=== PATIENT | male | born 1935 | race Caucasian/White ===

== ENCOUNTER 2018-03-22 10:17 | Outpatient (CLI) | payer MEDICARE, OTHER ==
[~2018-03-22 10:17] MED LIST: AMIO200T57 PO; APIX5TAB3 PO; ATOR40TA PO; BUPR150T8 PO; CARV3.122 PO; CLOP75TA33 PO; FURO-149 PO; GABA-530 PO; PANT-47 PO
[2018-03-22 10:51] LABS: TOTAL HEMOGLOBIN 15.9 G/dl (14.0-18.0)
[2018-03-22] MEDS ORDERED: albuterol 2.5 MG/3 ML nebule NEB ONE (11:15)
== END 2018-03-22 23:59 | disposition home or self-care (01) ==
LOC: RT 10:17
PROVIDERS: ATTEND Internal Medicine Cardiovascular Disease
DX: Z51.81 Encounter for therapeutic drug level monitoring (principal); I50.1 Left ventricular failure, unspecified; R06.02 Shortness of breath; I11.0 Hypertensive heart disease with heart failure; I50.22 Chronic systolic (congestive) heart failure; E11.9 Type 2 diabetes mellitus without complications; Z98.890 Other specified postprocedural states; Z79.899 Other long term (current) drug therapy
CPT/HCPCS: 71046; 85018; 94060; 94640; 94727; 94729; 94760

== ENCOUNTER 2018-07-19 10:41 | Inpatient (IN) | payer MEDICARE, OTHER ==
[~2018-07-19] VITALS: Ht 188 cm; Wt 90.9 kg
[~2018-07-19 10:41] MED LIST changes: +AMIO200T54 PO; -AMIO200T57 PO
[2018-07-19 11:15] LABS: BASOPHILS % (AUTO) 0.7 % (0-1); EOSINOPHILS # (AUTO) 0.2 X10'3 (0-0.9); EOSINOPHILS % (AUTO) 4.4 % (0-6); HEMATOCRIT 44.5 % (42.0-52.0); HEMOGLOBIN 14.8 g/dl (14.0-17.9); LYMPHOCYTES # (AUTO) 1.5 X10'3 (1.1-4.8); LYMPHOCYTES % (AUTO) 32.3 % (21-51); MEAN CORPUSCULAR HEMOGLOBIN 32.2 PG (27.0-31.0); MEAN CORPUSCULAR HGB CONC 33.3 % (33.0-36.5); MEAN CORPUSCULAR VOLUME 96.8 FL (78-98); MEAN PLATELET VOLUME 9.4 FL (7.4-10.4); MONOCYTES # (AUTO) 0.3 X10'3 (0-0.9); MONOCYTES % (AUTO) 7.2 % (2-12); NEUTROPHILS # (AUTO) 2.6 X10'3 (1.8-7.7); NEUTROPHILS % (AUTO) 55.4 % (42-75); PLATELET COUNT 137 X10'3 (140-440); RED CELL DISTRIBUTION WIDTH 14.2 % (11.5-14.5); WHITE BLOOD COUNT 4.6 X10'3 (4.5-11.0)
[2018-07-19] MEDS ORDERED: aspirin 325mg tablet PO ONE (11:15)
[2018-07-19 11:27] LABS: ALANINE AMINOTRANSFERASE 25 U/L (12-78); ALBUMIN 3.5 G/DL (3.4-5.0); ALBUMIN/GLOBULIN RATIO 1.1 (1.1-1.5); ALKALINE PHOSPHATASE 159 IU/L (46-116); ANION GAP 8 (8-16); ASPARTATE AMINO TRANSFERASE 23 U/L (10-37); BLOOD UREA NITROGEN 18 MG/DL (7-18); BUN/CREATININE RATIO 14.5 (5.4-32.0); CALCIUM 7.9 MG/DL (8.5-10.1); CHLORIDE 102 MMOL/L (99-107); CREATININE 1.24 MG/DL (0.60-1.10); GLUCOSE 101 MG/DL (70-104); POTASSIUM 3.2 MMOL/L (3.5-5.1); SODIUM 143 MMOL/L (135-145); TOTAL CARBON DIOXIDE 33.4 MMOL/L (24-32); TOTAL PROTEIN 6.6 G/DL (6.4-8.2); eGFR 56 ML/MIN
[2018-07-19] MEDS ORDERED: DRON400T2 PO (11:27)
[2018-07-19 11:43] LABS: D-DIMER 2.82 MG/L FEU (0-0.50); INR 1.1 INR; PARTIAL THROMBOPLASTIN TIME 29 SECONDS (22-32); PROTHROMBIN TIME 11.4 SECONDS (9.0-12.0)
[2018-07-19] MEDS ORDERED: iohexol 350MG/ML 100ml bottle IV ONE (12:14)
[2018-07-19 12:24] LABS: CLARITY,URINE CLEAR (Clear); COLOR,URINE YELLOW (Yellow); GLUCOSE, URINE NEGATIVE (Neg); KETONES,URINE NEGATIVE (Neg); LEUKOCYTE ESTERASE ,URINE NEGATIVE (Neg); NITRITES, URINE NEGATIVE (Neg); OCCULT BLOOD,URINE NEGATIVE (Neg); PROTEIN,URINE NEGATIVE (Neg); UROBILINOGEN,URINE 0.2 E.U/dL (0.2-1.0)
[2018-07-19 12:25] LABS: UA COLLECTION TYPE CLN CATCH MIDSTREAM
[2018-07-19] MEDS ORDERED: magnesium Cl slow-release 64mg tablet PO PRN (13:55)
[2018-07-19] MEDS ORDERED: magnesium 4gm in 100ml NS 100 ML IV PRN (13:55)
[2018-07-19] MEDS ORDERED: potassium Cl 20 mEq SR tablet PO PRN (13:55)
[2018-07-19] MEDS ORDERED: acetaminophen 325mg tablet PO PRN (13:55)
[2018-07-19] MEDS ORDERED: potassium Cl 40MEQ/NS 500ml 500 ML IV PRN ×2 (13:55)
[2018-07-19] MEDS ORDERED: magnesium hydroxide 30ml (MOM) UD suspension PO PRN (13:55)
[2018-07-19] MEDS ORDERED: bisacodyl 10mg suppository rectal RC PRN (13:55)
[2018-07-19] MEDS ORDERED: HYDROcodone/acetaminophen 5mg/325mg tablet PO PRN (13:55)
[2018-07-19] MEDS ORDERED: magnesium 1gm/100ml D5W IVPB 100 ML IV PRN (13:55)
[2018-07-19] MEDS ORDERED: mag hydrox/Alum hydrox/simeth 30ml oral suspension PO PRN (13:55)
[2018-07-19] MEDS ORDERED: morphine 2 MG/ML inj. syringe IV PRN ×2 (13:55)
[2018-07-19] MEDS ORDERED: metoprolol tartrate 1mg/ml inj IV PRN (14:00)
[2018-07-19] MEDS ORDERED: CAFFEINE CITRATE 60 MG/3 ML injection vial IV PRN (14:00)
[2018-07-19] MEDS ORDERED: regadenoson 0.4mg/5ml syringe IV PRN (14:00)
[2018-07-19] MEDS ORDERED: nitroGLYCERIN 0.4mg SUBLingual tab SL PRN ×2 (14:00)
[2018-07-19] MEDS ORDERED: dextrose ORAL solution 15 GM/59 ML bottle PO PRN ×2 (14:05)
[2018-07-19] MEDS ORDERED: insulin Lispro (HumaLOG) vial - multi-dose SQ SCH (14:05)
[2018-07-19] MEDS ORDERED: MESSAGE TO PHARMACY PO ONE (14:05)
[2018-07-19] MEDS ORDERED: dextrose 50%-water 50ml dispensing syringe IV PRN ×2 (14:05)
[2018-07-19] MEDS ORDERED: glucagon, human recombinant 1mg kit SUBCUT PRN (14:05)
[2018-07-19 15:00] VITALS: BP 144/69
[2018-07-19] MEDS: potassium Cl 20 mEq SR tablet PO PRN ×2 (15:24→20:41)
[2018-07-19] MEDS: potassium cl 20mEq in 1/2 NS 1,000 ML IV SCH (16:48)
[2018-07-19 19:00] VITALS: BP 133/55
[2018-07-19] MEDS: dronedarone hcl 400mg tablet PO SCH (20:33)
[2018-07-19] MEDS: carVEDilol 3.125mg tablet PO SCH (20:33)
[2018-07-19] MEDS: docusate sod 100mg capsule PO SCH (20:33)
[2018-07-19] MEDS: buPROPion SR 150mg tablet PO SCH (20:34)
[2018-07-19] MEDS: apixaban 5mg tablet PO SCH (20:34)
[2018-07-19] MEDS ORDERED: atorvastatin 20mg tablet PO SCH (21:00)
[2018-07-19] MEDS ORDERED: gabapentin 300mg capsule PO SCH (21:00)
[2018-07-19 23:00] VITALS: BP 109/58
[2018-07-20] VITALS (12 sets, daily range): BP systolic 104–175; BP diastolic 53–81
[2018-07-20] MEDS: potassium cl 20mEq in 1/2 NS 1,000 ML IV SCH (04:11)
[2018-07-20 06:21] LABS: BASOPHILS % (AUTO) 0.4 % (0-1); EOSINOPHILS # (AUTO) 0.2 X10'3 (0-0.9); EOSINOPHILS % (AUTO) 4.8 % (0-6); HEMATOCRIT 39.1 % (42.0-52.0); HEMOGLOBIN 13.8 g/dl (14.0-17.9); LYMPHOCYTES # (AUTO) 1.6 X10'3 (1.1-4.8); LYMPHOCYTES % (AUTO) 33.2 % (21-51); MEAN CORPUSCULAR HEMOGLOBIN 33.4 PG (27.0-31.0); MEAN CORPUSCULAR HGB CONC 35.3 % (33.0-36.5); MEAN CORPUSCULAR VOLUME 94.8 FL (78-98); MEAN PLATELET VOLUME 9.8 FL (7.4-10.4); MONOCYTES # (AUTO) 0.4 X10'3 (0-0.9); MONOCYTES % (AUTO) 9.2 % (2-12); NEUTROPHILS # (AUTO) 2.6 X10'3 (1.8-7.7); NEUTROPHILS % (AUTO) 52.4 % (42-75); PLATELET COUNT 117 X10'3 (140-440); RED BLOOD COUNT 4.13 X10'6 (4.70-6.10); RED CELL DISTRIBUTION WIDTH 14.6 % (11.5-14.5); WHITE BLOOD COUNT 4.8 X10'3 (4.5-11.0)
[2018-07-20 06:25] LABS: ALANINE AMINOTRANSFERASE 21 U/L (12-78); ALBUMIN 3.1 G/DL (3.4-5.0); ALBUMIN/GLOBULIN RATIO 1.1 (1.1-1.5); ALKALINE PHOSPHATASE 132 IU/L (46-116); ANION GAP 5 (8-16); ASPARTATE AMINO TRANSFERASE 17 U/L (10-37); BILIRUBIN,TOTAL 0.9 MG/DL (0.1-1.0); BLOOD UREA NITROGEN 17 MG/DL (7-18); CHLORIDE 105 MMOL/L (99-107); CREATININE 1.06 MG/DL (0.60-1.10); GLUCOSE 93 MG/DL (70-104); MAGNESIUM 1.6 MG/DL (1.5-2.4); POTASSIUM 3.1 MMOL/L (3.5-5.1); SODIUM 143 MMOL/L (135-145); TOTAL CARBON DIOXIDE 32.9 MMOL/L (24-32); TOTAL PROTEIN 5.8 G/DL (6.4-8.2); eGFR 67 ML/MIN
[2018-07-20] MEDS ORDERED: buPROPion SR 150mg tablet PO SCH (08:00)
[2018-07-20] MEDS ORDERED: aspirin 81mg tablet.DR PO SCH (08:00)
[2018-07-20] MEDS: carVEDilol 3.125mg tablet PO SCH (08:00)
[2018-07-20] MEDS ORDERED: furosemide 40mg tablet PO SCH (08:00)
[2018-07-20] MEDS ORDERED: K and/or MAG REPLACEMENT MC SCH (08:00)
[2018-07-20] MEDS ORDERED: pantoprazole 40mg Tablet.DR PO SCH (08:00)
[2018-07-20] MEDS: docusate sod 100mg capsule PO SCH (08:42)
[2018-07-20] MEDS: potassium Cl 20 mEq SR tablet PO PRN (08:43)
[2018-07-20] MEDS: apixaban 5mg tablet PO SCH (08:44)
[2018-07-20] MEDS: buPROPion SR 150mg tablet PO SCH (08:45)
[2018-07-20] MEDS: dronedarone hcl 400mg tablet PO SCH (08:48)
[2018-07-20] MEDS ORDERED: regadenoson 0.4mg/5ml syringe IV ONE (12:09)
[2018-07-20] MEDS ORDERED: aminophylline inj. 0 ML IV ONE (12:09)
== END 2018-07-20 16:40 | disposition home or self-care (01) | DRG 313 ==
LOC: ER 10:41 → ED HOLD 13:53 → PCU 3S 14:55
PROVIDERS: ADMIT Internal Medicine; ATTEND Family Medicine
PROC: B3201ZZ Computerized Tomography (CT Scan) of Thoracic Aorta using Low Osmolar Contrast (ICD-10-PCS; principal; 2018-07-19)
PROC: 4A02XM4 Measurement of Cardiac Total Activity, External Approach (ICD-10-PCS; 2018-07-20)
PROC: 3E033HZ Introduction of Radioactive Substance into Peripheral Vein, Percutaneous Approach (ICD-10-PCS; 2018-07-20)
DX: R07.89 Other chest pain (principal); I42.0 Dilated cardiomyopathy; I25.10 Atherosclerotic heart disease of native coronary artery without angina pectoris; K80.20 Calculus of gallbladder without cholecystitis without obstruction; E11.9 Type 2 diabetes mellitus without complications; E78.5 Hyperlipidemia, unspecified; R00.1 Bradycardia, unspecified; E87.6 Hypokalemia; G47.30 Sleep apnea, unspecified; I10 Essential (primary) hypertension; I48.91 Unspecified atrial fibrillation; T50.1X5A Adverse effect of loop [high-ceiling] diuretics, initial encounter; Z95.1 Presence of aortocoronary bypass graft; Z95.5 Presence of coronary angioplasty implant and graft; Z88.2 Allergy status to sulfonamides; Z86.73 Personal history of transient ischemic attack (TIA), and cerebral infarction without residual deficits; Z82.5 Family history of asthma and other chronic lower respiratory diseases; Z83.3 Family history of diabetes mellitus; Z80.8 Family history of malignant neoplasm of other organs or systems; Y92.9 Unspecified place or not applicable
CPT/HCPCS: 36415; 71045; 71275; 78452; 80053; 81003; 82948; 83036; 83735; 83880; 84484; 85025; 85379; 85610; 85730; 87070; 93005; 93017; 93306; 93970; 99285; A9500; J0280; Q9967

== ENCOUNTER 2019-05-02 11:29 | Emergency (ER) | payer MEDICARE, OTHER ==
[~2019-05-02] VITALS: Ht 188 cm; Wt 70.0 kg
[~2019-05-02 11:29] MED LIST changes: -AMIO200T54 PO; -CLOP75TA33 PO; +DRON400T2 PO
[2019-05-02] MEDS ORDERED: morphine 4 MG/ML inj SYRINge IV PRN (11:40)
[2019-05-02 12:28] LABS: BASOPHILS % (AUTO) 0.5 % (0-1); EOSINOPHILS # (AUTO) 0.3 X10'3 (0-0.9); EOSINOPHILS % (AUTO) 3.9 % (0-6); HEMATOCRIT 49.8 % (42.0-52.0); HEMOGLOBIN 16.3 g/dl (14.0-17.9); LYMPHOCYTES # (AUTO) 1.7 X10'3 (1.1-4.8); LYMPHOCYTES % (AUTO) 23.4 % (21-51); MEAN CORPUSCULAR HEMOGLOBIN 33.7 PG (27.0-31.0); MEAN CORPUSCULAR HGB CONC 32.8 g/dL (33.0-36.5); MEAN CORPUSCULAR VOLUME 102.8 FL (78-98); MEAN PLATELET VOLUME 10.1 FL (7.4-10.4); MONOCYTES # (AUTO) 0.5 X10'3 (0-0.9); MONOCYTES % (AUTO) 7.2 % (2-12); NEUTROPHILS # (AUTO) 4.8 X10'3 (1.8-7.7); PLATELET COUNT 130 X10'3 (140-440); RED BLOOD COUNT 4.84 X10'6 (4.70-6.10); RED CELL DISTRIBUTION WIDTH 15.8 % (11.5-14.5); WHITE BLOOD COUNT 7.4 X10'3 (4.5-11.0)
[2019-05-02] MEDS ORDERED: ondansetron/PF 4mg/2ml inj IV ONE (12:50)
[2019-05-02 12:52] LABS: ALANINE AMINOTRANSFERASE 29 U/L (12-78); ALBUMIN 3.6 G/DL (3.4-5.0); ALKALINE PHOSPHATASE 165 IU/L (46-116); ANION GAP 6 (8-16); ASPARTATE AMINO TRANSFERASE 26 U/L (10-37); BILIRUBIN,TOTAL 1.6 MG/DL (0.1-1.0); BLOOD UREA NITROGEN 15 MG/DL (7-18); BUN/CREATININE RATIO 13.5 (5.4-32.0); CALCIUM 8.4 MG/DL (8.5-10.1); CHLORIDE 104 MMOL/L (99-107); CREATININE 1.11 MG/DL (0.60-1.10); GLUCOSE 106 MG/DL (70-104); LIPASE 115 U/L (73-393); POTASSIUM 3.1 MMOL/L (3.5-5.1); SODIUM 144 MMOL/L (135-145); TOTAL CARBON DIOXIDE 34.4 MMOL/L (24-32); TOTAL PROTEIN 7.1 G/DL (6.4-8.2); eGFR 63 ML/MIN
--- NOTE | 2019-05-02 13:12 | NUR ---
pt back from ct
[2019-05-02 13:32] LABS: CLARITY,URINE CLOUDY (Clear); COLOR,URINE YELLOW (Yellow); GLUCOSE, URINE NEGATIVE (Neg); KETONES,URINE NEGATIVE (Neg); LEUKOCYTE ESTERASE ,URINE NEGATIVE (Neg); NITRITES, URINE NEGATIVE (Neg); OCCULT BLOOD,URINE TRACE-INTACT (Neg); PROTEIN,URINE 100 mg/dl (Neg)
[2019-05-02 13:34] LABS: UA COLLECTION TYPE URINAL
[2019-05-02 13:38] LABS: COARSE GRANULAR CAST >30 /LPF (NEGATIVE); HYALINE CASTS >30 /LPF (NEGATIVE)
[2019-05-02 13:39] LABS: FINE GRANULAR CAST >30 /LPF (NEGATIVE)
[2019-05-02 13:40] LABS: BACTERIA,URINE 1+ /HPF (Neg); SQUAMOUS EPITHELIAL CELL,UR FEW /LPF (FEW)
[2019-05-02] MEDS ORDERED: potassium Cl 10 mEq/100mL bag IV ONE (13:45)
[2019-05-02] MEDS ORDERED: potassium Cl 20 mEq SR tablet PO ONE (13:45)
[2019-05-02] MEDS ORDERED: CIPR-230 PO (13:58)
[2019-05-02] MEDS ORDERED: METR-159 PO (13:58)
[2019-05-02 14:15] VITALS: BP 142/73
== END 2019-05-02 14:17 | disposition home or self-care (01) ==
LOC: ER 11:29
DX: K52.9 Noninfective gastroenteritis and colitis, unspecified (principal); R05 Cough; E87.6 Hypokalemia; I25.10 Atherosclerotic heart disease of native coronary artery without angina pectoris; I10 Essential (primary) hypertension; Z86.73 Personal history of transient ischemic attack (TIA), and cerebral infarction without residual deficits; Z95.1 Presence of aortocoronary bypass graft; Z98.890 Other specified postprocedural states; Z88.2 Allergy status to sulfonamides; Z79.899 Other long term (current) drug therapy
CPT/HCPCS: 36415; 74176; 80053; 81001; 83690; 85025; 87088; 99284; J2405

== ENCOUNTER 2019-07-10 13:59 | Emergency (ER) | payer MEDICARE, OTHER ==
[~2019-07-10] VITALS: Ht 188 cm; Wt 88.6 kg
--- NOTE | 2019-07-10 14:57 | NUR ---
breaking primary RN, pt sitting up in bed, family present, awake, aware, still dizzy
[2019-07-10] MEDS ORDERED: meclizine 12.5mg tablet PO ONE (15:10)
[2019-07-10] MEDS ORDERED: ondansetron/PF 4mg/2ml inj IV ONE (15:10)
[2019-07-10] MEDS ORDERED: normal saline 1000ml 1,000 ML IV ONE (15:10)
[2019-07-10 15:15] LABS: BASOPHILS % (AUTO) 0.6 % (0-1); EOSINOPHILS # (AUTO) 0.2 X10'3 (0-0.9); EOSINOPHILS % (AUTO) 2.8 % (0-6); HEMATOCRIT 47.3 % (42.0-52.0); HEMOGLOBIN 15.9 g/dl (14.0-17.9); LYMPHOCYTES # (AUTO) 1.1 X10'3 (1.1-4.8); LYMPHOCYTES % (AUTO) 16.8 % (21-51); MEAN CORPUSCULAR HEMOGLOBIN 34.9 PG (27.0-31.0); MEAN CORPUSCULAR HGB CONC 33.7 g/dL (33.0-36.5); MEAN CORPUSCULAR VOLUME 103.6 FL (78-98); MEAN PLATELET VOLUME 9.7 FL (7.4-10.4); MONOCYTES # (AUTO) 0.4 X10'3 (0-0.9); MONOCYTES % (AUTO) 6.1 % (2-12); NEUTROPHILS # (AUTO) 4.9 X10'3 (1.8-7.7); NEUTROPHILS % (AUTO) 73.7 % (42-75); PLATELET COUNT 142 X10'3 (140-440); RED BLOOD COUNT 4.57 X10'6 (4.70-6.10); RED CELL DISTRIBUTION WIDTH 15.9 % (11.5-14.5); WHITE BLOOD COUNT 6.6 X10'3 (4.5-11.0)
[2019-07-10 15:30] LABS: ALANINE AMINOTRANSFERASE 39 U/L (12-78); ALBUMIN 3.6 G/DL (3.4-5.0); ALBUMIN/GLOBULIN RATIO 1.1 (1.1-1.5); ALKALINE PHOSPHATASE 158 IU/L (46-116); ANION GAP 7 (8-16); ASPARTATE AMINO TRANSFERASE 27 U/L (10-37); BILIRUBIN,TOTAL 1.1 MG/DL (0.1-1.0); BLOOD UREA NITROGEN 12 MG/DL (7-18); BUN/CREATININE RATIO 13.8 (5.4-32.0); CALCIUM 8.2 MG/DL (8.5-10.1); CHLORIDE 105 MMOL/L (99-107); CREATININE 0.87 MG/DL (0.60-1.10); GLUCOSE 100 MG/DL (70-104); MAGNESIUM 1.7 MG/DL (1.5-2.4); POTASSIUM 4.2 MMOL/L (3.5-5.1); SODIUM 142 MMOL/L (135-145); TOTAL CARBON DIOXIDE 30.5 MMOL/L (24-32); TOTAL PROTEIN 6.9 G/DL (6.4-8.2); eGFR 84 ML/MIN
[2019-07-10 16:16] LABS: CLARITY,URINE CLEAR (Clear); COLOR,URINE YELLOW (Yellow); GLUCOSE, URINE NEGATIVE (Neg); KETONES,URINE NEGATIVE (Neg); LEUKOCYTE ESTERASE ,URINE NEGATIVE (Neg); NITRITES, URINE NEGATIVE (Neg); OCCULT BLOOD,URINE TRACE-LYSED (Neg); PH,URINE 7.5 (4.8-8.0); PROTEIN,URINE TRACE mg/dl (Neg)
[2019-07-10 16:18] LABS: UA COLLECTION TYPE URINAL
[2019-07-10 16:24] LABS: BACTERIA,URINE FEW /HPF (Neg); SQUAMOUS EPITHELIAL CELL,UR FEW /LPF (FEW); WBC,URINE 0-4 /HPF (0-4)
[2019-07-10] MEDS ORDERED: MECL-111 PO (16:58)
[2019-07-10] MEDS ORDERED: ONDA8TAB6 PO (17:15)
[2019-07-10 17:36] VITALS: BP 179/79
== END 2019-07-10 17:38 | disposition home or self-care (01) ==
LOC: ER 13:59
DX: H81.10 Benign paroxysmal vertigo, unspecified ear (principal); I48.91 Unspecified atrial fibrillation; I25.10 Atherosclerotic heart disease of native coronary artery without angina pectoris; I10 Essential (primary) hypertension; E11.9 Type 2 diabetes mellitus without complications; Z86.73 Personal history of transient ischemic attack (TIA), and cerebral infarction without residual deficits; Z95.1 Presence of aortocoronary bypass graft; Z98.890 Other specified postprocedural states; Z88.2 Allergy status to sulfonamides; Z79.899 Other long term (current) drug therapy
CPT/HCPCS: 36415; 71045; 80053; 81001; 83735; 84484; 85025; 93005; 96361; 96374; 99284; J2405; J7030; J8597

== ENCOUNTER 2019-12-11 11:20 | Emergency (ER) | payer MEDICARE, OTHER ==
[~2019-12-11] VITALS: Ht 188 cm; Wt 87.1 kg
[~2019-12-11 11:20] MED LIST changes: +ALLO100T PO; -BUPR150T8 PO; +BUPR300T86 PO; +EFF37.5XRC PO; -FURO-149 PO
[2019-12-11 13:02] VITALS: BP 167/90
[2019-12-11] MEDS ORDERED: HYDR-4353 PO (13:44)
== END 2019-12-11 14:11 | disposition home or self-care (01) ==
LOC: ER 11:20
DX: M77.32 Calcaneal spur, left foot (principal); I25.10 Atherosclerotic heart disease of native coronary artery without angina pectoris; I10 Essential (primary) hypertension; E11.9 Type 2 diabetes mellitus without complications; Z86.73 Personal history of transient ischemic attack (TIA), and cerebral infarction without residual deficits; Z98.890 Other specified postprocedural states; Z88.2 Allergy status to sulfonamides; Z79.899 Other long term (current) drug therapy
CPT/HCPCS: 73630; 88300; 99283

== ENCOUNTER 2020-08-30 05:55 | Emergency (ER) | payer MEDICARE, OTHER ==
[~2020-08-30] VITALS: Ht 188 cm; Wt 84.0 kg
[2020-08-30] MEDS ORDERED: cocaine 4% topical solution 4ml bottle MM ONE (06:10)
[2020-08-30] MEDS ORDERED: phenylephrine 1% (X-tra strg) 15ml nasal spray NS PRN (06:15)
[2020-08-30] MEDS ORDERED: ONDA4TAB6 PO ×2 (06:27→06:46)
[2020-08-30] MEDS ORDERED: AMOX-422 PO ×2 (06:27→06:46)
[2020-08-30] MEDS ORDERED: amox tr/potassium clavulanate 875/125mg TAB PO ONE (06:30)
[2020-08-30] MEDS ORDERED: ondansetron 4mg rapidly disintigrating tab PO ONE (06:30)
[2020-08-30 07:07] VITALS: BP 132/82
== END 2020-08-30 07:09 | disposition home or self-care (01) ==
LOC: ER 05:56
DX: R04.0 Epistaxis (principal); I48.91 Unspecified atrial fibrillation; I10 Essential (primary) hypertension; I25.10 Atherosclerotic heart disease of native coronary artery without angina pectoris; E11.9 Type 2 diabetes mellitus without complications; Z85.22 Personal history of malignant neoplasm of nasal cavities, middle ear, and accessory sinuses; Z86.73 Personal history of transient ischemic attack (TIA), and cerebral infarction without residual deficits; Z98.890 Other specified postprocedural states; Z95.1 Presence of aortocoronary bypass graft; Z88.2 Allergy status to sulfonamides; Z79.2 Long term (current) use of antibiotics; Z79.899 Other long term (current) drug therapy
CPT/HCPCS: 30901; 99284

== ENCOUNTER 2022-03-22 06:03 | Day surgery (SDC) | payer MEDICARE, OTHER ==
[~2022-03-22] VITALS: Ht 188 cm; Wt 88.6 kg
[2022-03-22] VITALS (13 sets, daily range): BP systolic 111–142; BP diastolic 43–66
[~2022-03-22 06:03] MED LIST changes: +AMOX-422 PO; -DRON400T2 PO; +DRON400T7 PO; +ONDA4TAB6 PO
[2022-03-22] MEDS ORDERED: cefazolin/dext.iso 2gm/100ml 100 ML IV ONE (06:25)
[2022-03-22] MEDS ORDERED: normal saline 1000ml 1,000 ML IV SCH (06:30)
[2022-03-22] MEDS ORDERED: SERT-433 PO (06:39)
[2022-03-22] MEDS ORDERED: HYDR12.55 PO (06:44)
[2022-03-22] MEDS ORDERED: ATOR20TA PO (06:44)
[2022-03-22] MEDS ORDERED: ASPI-1071 PO (06:44)
[2022-03-22] MEDS ORDERED: GABA-534 PO (06:44)
[2022-03-22] MEDS ORDERED: ALLO100T PO (06:44)
[2022-03-22] MEDS ORDERED: PANT20TA18 PO (06:44)
[2022-03-22] MEDS ORDERED: LOSA50TA3 PO (06:44)
[2022-03-22 07:20] LABS: BASOPHILS # (AUTO) 0.1 X10'3 (0-0.2); BASOPHILS % (AUTO) 1.1 % (0-1); EOSINOPHILS # (AUTO) 0.4 X10'3 (0-0.9); EOSINOPHILS % (AUTO) 8.5 % (0-6); HEMATOCRIT 40.5 % (42.0-52.0); HEMOGLOBIN 13.4 g/dl (14.0-17.9); LYMPHOCYTES # (AUTO) 1.2 X10'3 (1.1-4.8); MEAN CORPUSCULAR HEMOGLOBIN 31.4 PG (27.0-31.0); MEAN CORPUSCULAR HGB CONC 33.1 g/dL (33.0-36.5); MEAN CORPUSCULAR VOLUME 94.7 FL (78-98); MONOCYTES # (AUTO) 0.4 X10'3 (0-0.9); MONOCYTES % (AUTO) 8.5 % (2-12); NEUTROPHILS # (AUTO) 3.1 X10'3 (1.8-7.7); NEUTROPHILS % (AUTO) 58.9 % (42-75); PLATELET COUNT 140 X10'3 (140-440); RED BLOOD COUNT 4.28 X10'6 (4.70-6.10); RED CELL DISTRIBUTION WIDTH 14.4 % (11.5-14.5); WHITE BLOOD COUNT 5.2 X10'3 (4.5-11.0)
[2022-03-22 07:32] LABS: ALBUMIN 3.3 G/DL (3.4-5.0); ANION GAP 7 (8-16); BLOOD UREA NITROGEN 15 MG/DL (7-18); BUN/CREATININE RATIO 13.4 (5.4-32.0); CALCIUM 8.1 MG/DL (8.5-10.1); CHLORIDE 107 MMOL/L (99-107); CREATININE 1.12 MG/DL (0.60-1.10); GLUCOSE 96 MG/DL (70-104); SODIUM 142 MMOL/L (135-145); TOTAL CARBON DIOXIDE 27.8 MMOL/L (24-32); eGFR 62 ML/MIN
[2022-03-22 07:36] LABS: APTT 28 SECONDS (22-32)
[2022-03-22] MEDS ORDERED: ceFAZolin 1000mg inj ONE (07:39)
[2022-03-22] MEDS ORDERED: LIDOcaine 1% W/epiNEPHrine 1:100,000 20ml vial ONE (07:39)
[2022-03-22] MEDS ORDERED: fentaNYL/PF 50MCG/1 ML 2ML syringe ONE (07:39)
[2022-03-22] MEDS ORDERED: midazolam 1 mg/ML 2ml injection ONE ×2 (07:39→08:56)
--- NOTE | 2022-03-22 09:40 | NUR ---
Pt back in room. VS stable as charted. IV fluids infusing as ordered. Will continue to monitor.
[2022-03-22] MEDS ORDERED: HYDROcodone/acetaminophen 5mg/325mg tablet PO PRN (09:55)
[2022-03-22] MEDS ORDERED: HYDROcodone/acetaminophen 10/325mg tab PO PRN (09:55)
--- NOTE | 2022-03-22 10:13 | NUR ---
Spoke with pt's per pt request to confirm discharge time. states she will be here at 1330.
[2022-03-22] MEDS ORDERED: vancomycin/NS 1 GM ADD-VANTAGE 250 ML X 1 DOSE IV ONE (11:00)
== END 2022-03-22 14:05 | disposition home or self-care (01) ==
LOC: SSTAY O 06:03
PROVIDERS: ATTEND Internal Medicine Cardiovascular Disease
DX: I49.5 Sick sinus syndrome (principal); I25.10 Atherosclerotic heart disease of native coronary artery without angina pectoris; I42.9 Cardiomyopathy, unspecified; I48.0 Paroxysmal atrial fibrillation; E11.9 Type 2 diabetes mellitus without complications; G47.30 Sleep apnea, unspecified; I11.0 Hypertensive heart disease with heart failure; I50.30 Unspecified diastolic (congestive) heart failure; E78.49 Other hyperlipidemia; I27.20 Pulmonary hypertension, unspecified; Z88.2 Allergy status to sulfonamides; Z86.73 Personal history of transient ischemic attack (TIA), and cerebral infarction without residual deficits; Z95.1 Presence of aortocoronary bypass graft; Z96.649 Presence of unspecified artificial hip joint; Z98.890 Other specified postprocedural states; Z83.6 Family history of other diseases of the respiratory system
CPT/HCPCS: 33208; 36415; 71046; 80048; 85025; 85610; 85730; 93005; 99152; 99153; C1785; C1894; C1898; J0690; J2250; J3010; J3370; J3490; J7030; A4615; A6258; A6449; C1786

== ENCOUNTER 2022-06-01 09:10 | Emergency (ER) | payer OTHER, MEDICARE ==
[~2022-06-01] VITALS: Ht 188 cm; Wt 88.6 kg
[~2022-06-01 09:10] MED LIST changes: -AMOX-422 PO; +ASPI-1071 PO; +ATOR20TA PO; -ATOR40TA PO; -BUPR300T86 PO; -CARV3.122 PO; -EFF37.5XRC PO; -GABA-530 PO; +GABA-534 PO; +HYDR12.55 PO; +LOSA50TA3 PO; -ONDA4TAB6 PO; -PANT-47 PO; +PANT20TA18 PO; +SERT-433 PO
[2022-06-01] MEDS ORDERED: ondansetron 4mg rapidly disintigrating tab PO ONE (09:55)
[2022-06-01] MEDS ORDERED: meclizine 12.5mg tablet PO ONE (09:55)
[2022-06-01 11:02] VITALS: BP 182/106
--- NOTE | 2022-06-01 11:04 | NUR ---
RECEIVED PT IN BED 2.
== END 2022-06-01 12:21 | disposition home or self-care (01) ==
LOC: ER 09:11
DX: R42 Dizziness and giddiness (principal); H53.8 Other visual disturbances; I10 Essential (primary) hypertension; E11.9 Type 2 diabetes mellitus without complications; Z88.2 Allergy status to sulfonamides
CPT/HCPCS: 99284; J8597

== ENCOUNTER 2022-06-29 12:45 | Outpatient (CLI) | payer OTHER | END 2022-06-29 23:59 | disposition home or self-care (01) | LOC: RAD 12:45 | PROVIDERS: ATTEND Psychiatry & Neurology Psychiatry | DX: G93.89 Other specified disorders of brain (principal); Z13.858 Encounter for screening for other nervous system disorders; J34.89 Other specified disorders of nose and nasal sinuses | CPT/HCPCS: 70551 ==

== ENCOUNTER 2022-12-17 08:01 | Emergency (ER) | payer OTHER, MEDICARE ==
[~2022-12-17] VITALS: Ht 188 cm; Wt 81.8 kg
[2022-12-17 09:09] VITALS: BP 146/78
[2022-12-17 09:36] LABS: BASOPHILS % (AUTO) 0.5 % (0-1); EOSINOPHILS # (AUTO) 0.4 X10'3 (0-0.9); EOSINOPHILS % (AUTO) 5.7 % (0-6); HEMATOCRIT 41.2 % (42.0-52.0); HEMOGLOBIN 13.8 g/dl (14.0-17.9); LYMPHOCYTES % (AUTO) 15.1 % (21-51); MEAN CORPUSCULAR HEMOGLOBIN 32.8 PG (27.0-31.0); MEAN CORPUSCULAR HGB CONC 33.6 g/dL (33.0-36.5); MEAN CORPUSCULAR VOLUME 97.7 FL (78-98); MEAN PLATELET VOLUME 9.3 FL (7.4-10.4); MONOCYTES # (AUTO) 0.4 X10'3 (0-0.9); MONOCYTES % (AUTO) 5.4 % (2-12); NEUTROPHILS # (AUTO) 4.7 X10'3 (1.8-7.7); NEUTROPHILS % (AUTO) 73.3 % (42-75); PLATELET COUNT 144 X10'3 (140-440); RED BLOOD COUNT 4.22 X10'6 (4.70-6.10); RED CELL DISTRIBUTION WIDTH 14.5 % (11.5-14.5); WHITE BLOOD COUNT 6.4 X10'3 (4.5-11.0)
[2022-12-17 09:45] LABS: APTT 33 SECONDS (22-32)
[2022-12-17] MEDS ORDERED: bacitracin 15gm ointment TP ONE (10:05)
--- NOTE | 2022-12-17 10:26 | NUR ---
RN to order bacitracin ointment per ORSANA Sandra. [facility]
== END 2022-12-17 10:53 | disposition home or self-care (01) ==
LOC: ER 08:02
DX: I48.91 Unspecified atrial fibrillation (principal); R58 Hemorrhage, not elsewhere classified; I10 Essential (primary) hypertension; E11.9 Type 2 diabetes mellitus without complications; Z86.73 Personal history of transient ischemic attack (TIA), and cerebral infarction without residual deficits; Z95.5 Presence of coronary angioplasty implant and graft; Z79.01 Long term (current) use of anticoagulants; Z88.2 Allergy status to sulfonamides
CPT/HCPCS: 12001; 36415; 85025; 85610; 85730; 99284; A6222; A6223; J7030; A4565; A6212; A6402; A6446; A6449

== ENCOUNTER 2024-07-02 20:39 | Inpatient (IN) | payer OTHER, MEDICARE ==
[~2024-07-02] VITALS: Ht 188 cm; Wt 71.4 kg
[~2024-07-02 20:39] MED LIST changes: -ALLO100T PO; -ASPI-1071 PO; +CARV-49 PO; +CYAN-104 PO; -GABA-534 PO; +GABA-535 PO; -HYDR12.55 PO; +IPRA3AMP9 NEB; +LACT-237 PO; -LOSA50TA3 PO; +PRED-892 PO; -SERT-433 PO
[2024-07-02 21:32] LABS: BASOPHILS % (AUTO) 0.4 % (0-1); EOSINOPHILS # (AUTO) 0.1 X10'3 (0-0.9); EOSINOPHILS % (AUTO) 0.8 % (0-6); HEMATOCRIT 41.4 % (42.0-52.0); HEMOGLOBIN 13.5 g/dl (14.0-17.9); LYMPHOCYTES # (AUTO) 1.1 X10'3 (1.1-4.8); MEAN CORPUSCULAR HEMOGLOBIN 33.3 PG (27.0-31.0); MEAN CORPUSCULAR HGB CONC 32.7 g/dL (33.0-36.5); MEAN PLATELET VOLUME 8.7 FL (7.4-10.4); MONOCYTES # (AUTO) 0.6 X10'3 (0-0.9); MONOCYTES % (AUTO) 6.8 % (2-12); NEUTROPHILS # (AUTO) 7.1 X10'3 (1.8-7.7); PLATELET COUNT 236 X10'3 (140-440); RED BLOOD COUNT 4.06 X10'6 (4.70-6.10); RED CELL DISTRIBUTION WIDTH 17.9 % (11.5-14.5); WHITE BLOOD COUNT 8.8 X10'3 (4.5-11.0)
[2024-07-02 22:00] LABS: ALANINE AMINOTRANSFERASE 23 U/L (12-78); ALBUMIN 2.9 G/DL (3.4-5.0); ALBUMIN/GLOBULIN RATIO 0.8 (1.1-1.5); ALKALINE PHOSPHATASE 121 IU/L (46-116); ANION GAP 2 (8-16); BILIRUBIN,TOTAL 1.1 MG/DL (0.1-1.0); BLOOD UREA NITROGEN 45 MG/DL (7-18); BUN/CREATININE RATIO 33.3 (10.0-20.0); CALCIUM 8.4 MG/DL (8.5-10.1); CHLORIDE 98 MMOL/L (99-107); CREATININE 1.35 MG/DL (0.60-1.10); GLUCOSE 138 MG/DL (70-104); SODIUM 133 MMOL/L (135-145); TOTAL CARBON DIOXIDE 33.1 MMOL/L (24-32); TOTAL PROTEIN 6.7 G/DL (6.4-8.2); eCRCL 37 ML/MIN; eGFR 50 ML/MIN
[2024-07-02 22:03] LABS: LIPASE 48 U/L (16-77); PRO BRAIN NATRIURETIC PEPTIDE 263 PG/ML (0-450)
[2024-07-02 22:04] LABS: ASPARTATE AMINO TRANSFERASE 40 U/L (10-37); POTASSIUM 5.8 MMOL/L (3.5-5.1)
[2024-07-02] MEDS ORDERED: [UNRECOGNIZED DRUG - OTHER] IV SCH (22:20)
[2024-07-02] MEDS ORDERED: MAGNESIUM IV SCH (22:20)
[2024-07-02] MEDS ORDERED: CALCIUM GLUCONATE IV SCH (22:20)
[2024-07-02] MEDS ORDERED: POTASSIUM IV SCH (22:20)
[2024-07-02] MEDS ORDERED: SODIUM CL IV SCH (22:20)
[2024-07-02] MEDS: CALCIUM GLUC 1gm/50ml NACL,iso 50 ML IV ONE ×2 (23:09→23:40)
[2024-07-02] MEDS ORDERED: iohexol 350MG/ML 100ml bottle IV ONE (23:48)
[2024-07-03] MEDS: HYDROmorphone inj. 0.5 MG/0.5 ML DISP.SYRIN IV ONE (00:16)
[2024-07-03] MEDS: sodium bicarbonate (8.4%) inj. 50 MEQ in sodium chloride 0.45% 1,000 ML IV SCH (00:26)
[2024-07-03] MEDS: normal saline 1000ml 1,000 ML IV ONE (00:35)
[2024-07-03 02:58] LABS: BILIRUBIN,URINE NEGATIVE (Neg); CLARITY,URINE CLEAR (Clear); COLOR,URINE YELLOW (Yellow); GLUCOSE, URINE NEGATIVE (Neg); KETONES,URINE NEGATIVE (Neg); LEUKOCYTE ESTERASE ,URINE NEGATIVE (Neg); NITRITES, URINE NEGATIVE (Neg); OCCULT BLOOD,URINE NEGATIVE (Neg); PH,URINE 5.5 (4.8-8.0); PROTEIN,URINE NEGATIVE (Neg)
[2024-07-03 02:59] LABS: UA COLLECTION TYPE URINAL
[2024-07-03] MEDS ORDERED: potassium Cl 20 mEq SR tablet PO PRN ×2 (03:00)
[2024-07-03] MEDS ORDERED: acetaminophen 325mg tablet PO PRN ×2 (03:00)
[2024-07-03] MEDS ORDERED: magnesium sulf-water 2g/50mL 50 ML IV PRN (03:00)
[2024-07-03] MEDS ORDERED: ondansetron/PF 4mg/2ml inj IV PRN (03:00)
[2024-07-03] MEDS ORDERED: magnesium Cl slow-release 64mg tablet PO PRN (03:00)
[2024-07-03] MEDS ORDERED: potassium Cl 40MEQ/1/2NS 520ml 520 ML IV PRN (03:00)
[2024-07-03] MEDS ORDERED: magnesium hydroxide 30ml (MOM) UD suspension PO PRN (03:00)
[2024-07-03] MEDS ORDERED: morphine 10mg/ml inj. IV PRN (03:00)
[2024-07-03] MEDS ORDERED: morphine 10mg/0.5ml (conc. morphine) oral syringe PO PRN (03:00)
[2024-07-03] MEDS ORDERED: magnesium sulf-water 4G/100mL 100 ML IV PRN (03:00)
[2024-07-03] MEDS ORDERED: mag hydrox/Alum hydrox/simeth 30ml oral suspension PO PRN (03:00)
[2024-07-03 05:15] VITALS: RESP 12; O2SAT 90
[2024-07-03 05:20] VITALS: BP 96/57; PULSE 91; RESP 12; TEMP 97.7; O2SAT 90
[2024-07-03] MEDS ORDERED: CARV3.12 PO (05:28)
[2024-07-03] MEDS ORDERED: MAGN400O6 PO (05:28)
[2024-07-03] MEDS ORDERED: MAG-150 PO (05:28)
[2024-07-03] MEDS ORDERED: DOCU-148 PO (05:28)
[2024-07-03] MEDS ORDERED: ACET325C6 PO (05:28)
[2024-07-03] MEDS ORDERED: BUPR150T8 PO (05:28)
[2024-07-03] MEDS ORDERED: MULT-1085 PO (05:28)
[2024-07-03] MEDS ORDERED: SENN-129 PO (05:28)
[2024-07-03] MEDS ORDERED: BISA10SU62 RC (05:28)
[2024-07-03] MEDS ORDERED: MELA1TAB28 PO (05:28)
[2024-07-03] MEDS ORDERED: NA P133E4 RC (05:28)
[2024-07-03 06:00] VITALS: BP 96/57; PULSE 91; RESP 12; TEMP 97.7; O2SAT 90
[2024-07-03] MEDS ORDERED: docusate sod 100mg capsule PO SCH (08:00)
[2024-07-03] MEDS: K and/or MAG REPLACEMENT MC SCH (08:00)
[2024-07-03 08:30] VITALS: RESP 14; O2SAT 90
[2024-07-03] MEDS: docusate sod 100mg capsule PO SCH (09:02)
[2024-07-03] MEDS: pantoprazole 40mg Tablet.DR PO SCH (09:02)
[2024-07-03 13:34] LABS: C DIFF ANTIGEN NEGATIVE (NEGATIVE); C DIFF SPECIMEN=DIARRHEA? ACCEPTABLE; C DIFFICILE TOXINS A&B NEGATIVE (Neg)
[2024-07-03 18:00] VITALS: BP 116/74; PULSE 66; RESP 20; TEMP 97.4; O2SAT 98
[2024-07-03] MEDS: gabapentin 400mg capsule PO SCH (21:48)
[2024-07-04 08:58] VITALS: RESP 16; O2SAT 93
[2024-07-04 18:00] VITALS: BP 126/74; PULSE 89; RESP 16; TEMP 97.9; O2SAT 93
[2024-07-04 20:00] VITALS: RESP 16; O2SAT 93
[2024-07-04 22:00] VITALS: BP 116/74; PULSE 66; RESP 20; TEMP 97.4; O2SAT 98
[2024-07-05 11:00] VITALS: BP 125/74; PULSE 81; RESP 16; TEMP 97.1; O2SAT 95
[2024-07-05 18:00] VITALS: BP 143/82; PULSE 94; RESP 17; TEMP 97.4; O2SAT 97
[2024-07-05 20:00] VITALS: RESP 17; O2SAT 97
[2024-07-06 08:00] VITALS: BP 99/53; PULSE 68; RESP 16; TEMP 98.2; O2SAT 95
[2024-07-06 20:00] VITALS: RESP 16; O2SAT 95
[2024-07-06] MEDS: LORazepam 2 mg/ml vial IV PRN (20:37)
[2024-07-07 06:38] VITALS: BP 94/54; PULSE 65; RESP 14; TEMP 98.5; O2SAT 93
[2024-07-07 08:00] VITALS: RESP 16; O2SAT 93
[2024-07-07 20:00] VITALS: RESP 18; O2SAT 96
[2024-07-08 08:00] VITALS: RESP 16
[2024-07-08 08:40] VITALS: BP 94/54; PULSE 65; RESP 14; TEMP 98.5; O2SAT 93
[2024-07-08 18:00] VITALS: BP 114/77; PULSE 136; RESP 22; TEMP 98.5; O2SAT 94
[2024-07-09 06:00] VITALS: BP 108/75; PULSE 142; RESP 18; TEMP 96.8; O2SAT 95
[2024-07-09 08:00] VITALS: RESP 16
[2024-07-09 11:00] VITALS: BP 107/76; PULSE 140; RESP 16; TEMP 97; O2SAT 95
[2024-07-09] MEDS ORDERED: MORP10CA7 IV (12:40)
== END 2024-07-09 13:30 | disposition hospice, home (50) | DRG 314 ==
LOC: ER 20:40 → ED HOLD 07-03 03:03 → SUR 3N 07-03 05:11
PROVIDERS: ADMIT Internal Medicine Pulmonary Disease; ATTEND Registered Nurse Psychiatric/Mental Health
PROC: B32T1ZZ Computerized Tomography (CT Scan) of Left Pulmonary Artery using Low Osmolar Contrast (ICD-10-PCS; principal; 2024-07-03)
PROC: B3201ZZ Computerized Tomography (CT Scan) of Thoracic Aorta using Low Osmolar Contrast (ICD-10-PCS; 2024-07-03)
PROC: B32S1ZZ Computerized Tomography (CT Scan) of Right Pulmonary Artery using Low Osmolar Contrast (ICD-10-PCS; 2024-07-03)
DX: T82.538A Leakage of other cardiac and vascular devices and implants, initial encounter (principal); I71.30 Abdominal aortic aneurysm, ruptured, unspecified; E87.1 Hypo-osmolality and hyponatremia; N17.9 Acute kidney failure, unspecified; E44.0 Moderate protein-calorie malnutrition; K44.9 Diaphragmatic hernia without obstruction or gangrene; Z66 Do not resuscitate; I25.10 Atherosclerotic heart disease of native coronary artery without angina pectoris; I48.91 Unspecified atrial fibrillation; E87.5 Hyperkalemia; I12.9 Hypertensive chronic kidney disease with stage 1 through stage 4 chronic kidney disease, or unspecified chronic kidney disease; N18.9 Chronic kidney disease, unspecified; K21.9 Gastro-esophageal reflux disease without esophagitis; E11.42 Type 2 diabetes mellitus with diabetic polyneuropathy; E11.22 Type 2 diabetes mellitus with diabetic chronic kidney disease; F41.9 Anxiety disorder, unspecified; F32.A Depression, unspecified; Z96.641 Presence of right artificial hip joint; Y83.1 Surgical operation with implant of artificial internal device as the cause of abnormal reaction of the patient, or of later complication, without mention of misadventure at the time of the procedure; Z86.79 Personal history of other diseases of the circulatory system; Z95.1 Presence of aortocoronary bypass graft; Z82.5 Family history of asthma and other chronic lower respiratory diseases; Z83.3 Family history of diabetes mellitus; Z80.0 Family history of malignant neoplasm of digestive organs; Z95.0 Presence of cardiac pacemaker; Z86.73 Personal history of transient ischemic attack (TIA), and cerebral infarction without residual deficits; Z79.899 Other long term (current) drug therapy; Z51.5 Encounter for palliative care; Z68.20 Body mass index [BMI] 20.0-20.9, adult; Z88.2 Allergy status to sulfonamides; Y92.89 Other specified places as the place of occurrence of the external cause
CPT/HCPCS: 36415; 74022; 74174; 74176; 80053; 81003; 83605; 83690; 83880; 84484; 85025; 87081; 87324; 87449; 93005; 96365; 96366; 96375; 99291; A6212; A6223; A6258; A6449; G0378; J0610; J1170; J2060; J3490; J7030; Q9967